=== PATIENT | male | born 1970 | race Hispanic/Latino ===

== ENCOUNTER 2017-08-24 12:50 | Emergency (ER) | payer OTHER ==
[2017-08-24 12:56] VITALS: BMI 28.4
[2017-08-24 12:59] VITALS: TEMP 98.6
--- NOTE | 2017-08-24 13:17 | ED PDOC ---
Arrival/HPI - General Chief Complaint: Dizziness/Lightheaded Time Seen by Provider: 08/24/17 13:12 Historian: Patient - History of Present Illness Narrative History of Present Illness (Text): 08/24/17 13:05 Emil Roa is a 47 year old male, who presents to the emergency department complaining of dizziness and shortness of breath since prior to arrival. Patient reports he was working in his truck when he backed into a garage and went inside the trailer. Patient states once he was inside the trailer he became extremely dizzy to the point that was going to pass out. This caused him shortness of breath and he believes it was carbon monoxide since he had a taste of fumes in his mouth. Patient denies chest pain, headache, fever, nausea, vomiting or other complaints. Time/Duration: Prior to Arrival Symptom Onset: Sudden Symptom Course: Unchanged Context: Work Past Medical History - Provider Review Nursing Documentation Reviewed: Yes - Infectious Disease Hx of Infectious Diseases: None - Psychiatric Hx Substance Use: No - Anesthesia Hx Anesthesia: No Family/Social History - Physician Review Nursing Documentation Reviewed: Yes Family/Social History: Unknown Family HX Smoking Status: Never Smoked Hx Alcohol Use: No Hx Substance Use: No Allergies/Home Meds Allergies/Adverse Reactions: Allergies No Known Allergies Allergy (Verified 08/24/17 12:56) Home Medications: Home Meds Medication Instructions Recorded Confirmed No Known Home Med 08/24/17 08/24/17 Review of Systems - Review of Systems Constitutional: absent: Fevers Eyes: absent: Vision Changes Respiratory: SOB. absent: Cough Cardiovascular: absent: Chest Pain Gastrointestinal: absent: Abdominal Pain, Vomiting Genitourinary Male: absent: Frequency Musculoskeletal: absent: Back Pain Skin: absent: Rash Neurological: Dizziness. absent: Headache Endocrine: absent: Polyuria Hemo/Lymphatic: absent: Easy Bleeding Psychiatric: absent: Anxiety Physical Exam Vital Signs Reviewed: Yes Vital Signs Temp Pulse Resp BP Pulse Ox 08/24/17 14:04 85 18 149/110 H 96 08/24/17 12:58 98.6 F 90 18 155/110 H 96 Temperature: Afebrile Blood Pressure: Hypertensive Pulse: Regular Respiratory Rate: Normal Appearance: Positive for: Well-Appearing, Non-Toxic, Comfortable Pain Distress: None Mental Status: Positive for: Alert and Oriented X 3 Finger Stick Blood Glucose: 107 - Systems Exam Head: Present: Atraumatic, Normocephalic Pupils: Present: PERRL Extroacular Muscles: Present: EOMI Conjunctiva: Present: Normal Mouth: Present: Moist Mucous Membranes Respiratory/Chest: Present: Clear to Auscultation, Good Air Exchange. No: Respiratory Distress, Accessory Muscle Use Cardiovascular: Present: Regular Rate and Rhythm, Normal S1, S2. No: Murmurs Neurological: Present: GCS=15, CN II-XII Intact, Speech Normal, Motor Func Grossly Intact, Normal Sensory Function, Memory Normal Skin: Present: Warm, Dry, Normal Color. No: Rashes Psychiatric: Present: Alert, Oriented x 3, Normal Insight, Normal Concentration Medical Decision Making ED Course and Treatment: 08/24/17 Plan: -- Labs -- Reassess and disposition Progress Notes: - Lab Interpretations Lab Results: 08/24/17 13:38 08/24/17 13:38 Lab Results 08/24/17 13:38: pO2 33, ABG Carboxyhemoglobin 3.1 H, POC ABG HHb (Measured) 28.3 H, ABG Methemoglobin 0.9, VBG pH 7.32, VBG pCO2 56.0, VBG HCO3 28.9 H, VBG O2 Sat (Calc) 70.5 H, VBG Base Excess 1.1, VBG Hgb O2 Saturation 67.7 L, Hemoglobin 17.7 H 08/24/17 13:38: Sodium 141, Potassium 4.7, Chloride 103, Carbon Dioxide 25, Anion Gap 17, BUN 20, Creatinine 1.0, Est GFR ( Amer) > 60, Est GFR (Non- Af Amer) > 60, Random Glucose 93, Calcium 10.1, Total Bilirubin 0.6, AST 40, ALT 56, Alkaline Phosphatase 83, Lactate Dehydrogenase 547, Total Creatine Kinase 165, Troponin I < 0.01, Total Protein 8.2, Albumin 4.6, Globulin 3.6, Albumin/Globulin Ratio 1.3 08/24/17 13:38: WBC 7.0, RBC 5.32, Hgb 16.9, Hct 46.7, MCV 87.8, MCH 31.8, MCHC 36.2, RDW 12.4, Plt Count 219, MPV 10.5, Gran % 67.9, Lymph % (Auto) 20.9 L, [place] % (Auto) 7.0 H, Eos % (Auto) 3.6, Baso % (Auto) 0.6, Gran # 4.78, Lymph # 1.5, [place] # 0.5, Eos # 0.3, Baso # 0.04 I have reviewed the lab results: Yes - Medication Orders Current Medication Orders: Discontinued Medications Acetaminophen (Tylenol 650mg/20.3ml Solution Ud) 650 mg PO STAT STA Stop: 08/24/17 14:58 Last Admin: 08/24/17 15:08 Dose: MAR Pain/Vitals Document 08/24/17 15:08 OCS (Rec: 08/24/17 15:09 OCS [facility] [id number]) Pain Reassessment Is This A Pain ReAssessment? Yes Sleep Is patient sleeping during reassessment? 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 Description Constant Intensity 5 Scale Used Numeric Aggravating Factors ADL's Sodium Chloride (Sodium Chloride 0.9%) 1,000 mls @ 999 mls/hr IV .Q1H1M STA Stop: 08/24/17 14:19 Last Admin: 08/24/17 13:42 Dose: 999 mls/hr eMAR Start Stop Document 08/24/17 13:42 OCS (Rec: 08/24/17 13:43 OCS [facility] [id number]) Intravenous Solution Start Date 08/24/17 Start Time 13:43 End Date 08/24/17 - Scribe Statement The provider has reviewed the documentation as recorded by the Markell Drummond Provider Scribe Attestation: All medical record entries made by the Jadenibjacki were at my direction and personally dictated by me. I have reviewed the chart and agree that the record accurately reflects my personal performance of the history, physical exam, medical decision making, and the department course for this patient. I have also personally directed, reviewed, and agree with the discharge instructions and disposition. Disposition/Present on Arrival - Present on Arrival Any Indicators Present on Arrival: No History of DVT/PE: No History of Uncontrolled Diabetes: No Urinary Catheter: No History of Decub. Ulcer: No History Surgical Site Infection Following: Obstetrical/Gynecological Surgery - Disposition Have Diagnosis and Disposition been Completed?: Yes Diagnosis: Exposure to carbon monoxide Disposition: HOME/ ROUTINE Disposition Time: 15:11 Patient Problems: Current Active Problems Problem Status Onset Exposure to carbon monoxide Acute Condition: GOOD Discharge Instructions (ExitCare): Carbon Monoxide Poisoning (ED) Referrals: Biju Redmond MD [Primary Care Provider] - Follow up with primary Forms: [email or web address] ([place])
[2017-08-24] MEDS ORDERED: Sodium Chloride 0.9% 1,000 ML IV STA (13:19)
[2017-08-24 13:49] LABS: BASO # 0.04 K/mm3 (0.0-2.0); BASO % 0.6 % (0.0-3.0); EOS # 0.3 (0.0-0.7); EOS % 3.6 % (1.5-5.0); GRAN # 4.78 (1.4-6.5); GRAN % 67.9 % (50.0-68.0); HEMATOCRIT 46.7 % (42.0-52.0); LYMPH # 1.5 (1.2-3.4); LYMPH % 20.9 % (22.0-35.0); MEAN CELL VOLUME 87.8 fl (80.0-105.0); MEAN CORPUSCULAR HEMOGLOBIN 31.8 pg (25.0-35.0); MEAN CORPUSCULAR HGB CONC 36.2 g/dl (31.0-37.0); MEAN PLATELET VOLUME 10.5 fl (7.0-11.0); MONO # 0.5 (0.1-0.6); RED CELL DISTRIBUTION WIDTH 12.4 % (11.5-14.5)
[2017-08-24 13:53] LABS: BLOOD GAS HEMOGLOBIN 17.7 g/dL (11.7-17.4); CARBOXYHEMOGLOBIN 3.1 % (0.5-1.5); HHB 28.3 % (0-5); METHEMOGLOBIN 0.9 % (0.0-3.0); VENOUS BLOOD GAS BASE EXCESS 1.1 mmol/L (0.0-2.0); VENOUS BLOOD HGB O2 SAT 67.7 % (95.0-98.0); VENOUS BLOOD PH 7.32 (7.32-7.43)
[2017-08-24 14:02] LABS: ALB/GLOB RATIO 1.3 (1.1-1.8); ALKALINE PHOSPHATASE 83 U/L (38-126); ALT/SGPT 56 U/L (7-56); AST/SGOT 40 U/L (17-59); BILIRUBIN,TOTAL 0.6 mg/dL (0.2-1.3); BLOOD UREA NITROGEN 20 mg/dL (7-21); CALCIUM 10.1 mg/dL (8.4-10.5); CARBON DIOXIDE 25 mmol/L (21-33); CHLORIDE 103 mmol/L (98-107); GFR AFRICAN-AMERICAN > 60; GLUCOSE,RANDOM 93 mg/dL (70-110); POTASSIUM 4.7 mmol/L (3.6-5.0); SODIUM 141 mmol/L (132-148); TOTAL PROTEIN 8.2 g/dL (5.8-8.3)
[2017-08-24 14:14] LABS: TROPONIN I < 0.01 ng/mL
[2017-08-24] MEDS ORDERED: Acetaminophen 650mg/20.3ml solution UD PO STA (14:57)
[2017-08-24 15:13] VITALS: BP 149/87; PULSE 92; RESP 19; O2SAT 99
--- NOTE | 2017-08-24 16:15 | CARD ---
APPROVED REPORT EKG Measurement Heart [id number] <Conclusion> Normal sinus rhythm Normal ECG
== END 2017-08-24 15:22 | disposition home or self-care (01) ==
LOC: ED 12:50
DX: Z77.29 Contact with and (suspected) exposure to other hazardous substances (principal)
CPT/HCPCS: 80053; 82550; 82803; 83615; 84484; 85025; 93005; 99285; J7040